=== PATIENT | female | born 1930 | race Caucasian/White ===

== ENCOUNTER 2017-05-21 18:31 | Emergency (ER) | payer MEDICARE ==
[2017-05-21 20:01] LABS: ABSOLUTE BASOPHILS # (AUTO) 0.1 10^3/uL (0.0-0.2); ABSOLUTE EOSINOPHILS # (AUTO) 0.1 10^3/uL (0.0-0.6); ABSOLUTE MONOCYTES (AUTO) 0.6 10^3/uL (0.1-1.4); ABSOLUTE NEUT (AUTO) 4.2 10^3/uL (1.7-8.2); BASOPHILS % (AUTO) 0.8 % (0-2); EOSINOPHILS % (AUTO) 1.5 % (0-6); HEMOGLOBIN 12.5 g/dL (12.0-15.5); LYMPHOCYTES % (AUTO) 28.1 % (13-45); MEAN CORPUSCULAR HEMOGLOBIN 29.2 pg (27.0-33.4); MEAN CORPUSCULAR HGB CONC 33.8 g/dL (32.0-36.0); MEAN CORPUSCULAR VOLUME 87 fl (80-97); MONOCYTES % (AUTO) 8.3 % (3-13); PLATELET COUNT 289 10^3/uL (150-450); RED BLOOD COUNT 4.27 10^6/uL (3.72-5.28); RED CELL DISTRIBUTION WIDTH 12.9 % (11.5-14.0); SEGMENTED NEUTROPHILS % (AUTO) 61.3 % (42-78); TOTAL CELLS COUNTED % (AUTO) 100 %; WHITE BLOOD COUNT 6.9 10^3/uL (4.0-10.5)
[2017-05-21 20:05] LABS: APPEARANCE,URINE CLEAR; BILIRUBIN,URINE NEGATIVE (NEGATIVE); COLOR,URINE COLORLESS; GLUCOSE, URINE NEGATIVE (NEGATIVE); KETONES,URINE NEGATIVE (NEGATIVE); LEUKOCYTE ESTERASE,URINE SMALL (NEGATIVE); NITRITE,URINE NEGATIVE (NEGATIVE); PROTEIN,URINE NEGATIVE (NEGATIVE); URINE SPECIFIC GRAVITY 1.003; UROBILINOGEN,URINE NEGATIVE mg/dL (<2.0)
--- NOTE | 2017-05-21 20:09 | ER Document Report ---
ED General - General Chief Complaint: High Blood Pressure Stated Complaint: FEVER Time Seen by Provider: 05/21/17 19:26 Cannot obtain history due to: Other - Poor historian Notes: Patient is an 86-year-old female with a past medical history of hypothyroidism and hypertension who presents with severe hypertension and a feeling of lightheadedness. Patient is a very difficult historian and does struggle to provide some details of her history. Her daughter at the bedside reports that the patient has noted her blood pressure has been markedly elevated throughout the day today and she has also been complaining of lightheadedness and "just not feeling right". Patient denies any chest pain, shortness of breath, nausea , vomiting, weakness, numbness, confusion, neck pain or fever. No head trauma. She has a history of similar symptoms in the past and her blood pressure has gotten very high. She has not seen her primary doctor regarding today's concerns. She has not noted that he seemed to improve or worsen her symptoms. At time of my assessment her only complaint is that she "just does not feel right". TRAVEL OUTSIDE OF THE [place] IN LAST 30 DAYS: No - Related Data Allergies/Adverse Reactions: influenza virus vaccine tri-split 2 [From Fluarix 2801-4066 (PF)] Allergy ( Verified 08/28/13 15:42) iodine [Iodine] Allergy (Verified 08/28/13 15:42) pneumococcal vaccine [Pneumococcal Vaccine] Allergy (Verified 08/28/13 15:42) Past Medical History - General Information source: Patient - Social History Smoking Status: Never Smoker Chew tobacco use (# tins/day): No Frequency of alcohol use: None Drug Abuse: None Lives with: Family Family History: Reviewed & Not Pertinent Patient has suicidal ideation: No Patient has homicidal ideation: No - Past Medical History Cardiac Medical History: Reports: Hx Hypercholesterolemia, Hx Hypertension Endocrine Medical History: Reports: Hx Hypothyroidism Renal/ Medical History: Denies: Hx Peritoneal Dialysis Musculoskeltal Medical History: Reports Hx Arthritis Past Surgical History: Reports: Hx Tonsillectomy. Denies: Hx Pacemaker - Immunizations Hx Diphtheria, Pertussis, Tetanus Vaccination: Yes Review of Systems - Review of Systems Notes: Constitutional: Negative for fever. HENT: Negative for sore throat. Eyes: Negative for visual changes. Cardiovascular: Negative for chest pain. Respiratory: Negative for shortness of breath. Gastrointestinal: Negative for abdominal pain, vomiting or diarrhea. Genitourinary: Negative for dysuria. Musculoskeletal: Negative for back pain. Skin: Negative for rash. Neurological: Negative for headaches, weakness or numbness. 10 point ROS negative except as marked above and in HPI. Physical Exam - Vital signs Vitals: Temp Pulse Resp BP Pulse Ox 98.5 F 83 16 221/86 H 97 05/21/17 18:56 05/21/17 18:56 05/21/17 18:56 05/21/17 18:56 05/21/17 18:56 Interpretation: Hypertensive - Blood pressures are equal and symmetric in the bilateral upper extremities taken at the bedside by me Notes: PHYSICAL EXAMINATION: GENERAL: Well-appearing, well-nourished and in no acute distress. HEAD: Atraumatic, normocephalic. EYES: Pupils equal round and reactive to light, extraocular movements intact, sclera anicteric, conjunctiva are normal. ENT: nares patent, oropharynx clear without exudates. Moist mucous membranes. NECK: Normal range of motion, supple without lymphadenopathy LUNGS: Breath sounds clear to auscultation bilaterally and equal. No wheezes rales or rhonchi. HEART: Regular rate and rhythm without murmurs ABDOMEN: Soft, nontender, normoactive bowel sounds. No guarding, no rebound. No masses appreciated. EXTREMITIES: Normal range of motion, no pitting or edema. No cyanosis. NEUROLOGICAL: Face symmetric. Tongue protrudes midline. Extraocular motions intact. Pupils are 2 mm and equally reactive. Normal speech, normal gait. 5 out of 5 strength in both the distal and proximal upper and lower extremities bilaterally. Sensation is grossly intact throughout. Finger to nose testing normal. Pronator drift normal. PSYCH: Normal mood, normal affect. SKIN: Warm, Dry, normal turgor, no rashes or lesions noted. Course - Re-evaluation Re-evalutation: 05/21/17 20:09 Patient complaints of hypertension with associated light headedness. Although patient reports that she had a "fever" today she states she felt hot but did not record temperature and felt that her forehead felt warm when she touched it. At time of my assessment other than feeling somewhat lightheaded, she denies any additional complaints. EKG unremarkable. Her blood pressures are equal and symmetric in the bilateral upper extremities at 199 systolic over 92 diastolic. Clinical history is not consistent with an acute aortic dissection, vertebral or cervical artery dissection, acute stroke, or acute ID. Acute PE also seems highly unlikely. It seems that the patient is having an episode where her blood pressure has become acutely elevated for unclear etiology and is likely resulting her symptoms of lightheadedness. Will symptomatically treat her blood pressure here with hydrochlorothiazide 50 mg p.o., obtain basic laboratories and reassess the patient. 05/21/17 22:05 Patient's labs are unremarkable with the exception of the urinalysis was to suggest a urinary tract infection. Blood pressure does remain elevated. Will continue to monitor the patient 05/21/17 22:40 Patient's blood pressures improved after receiving hydralazine yet she continues to complain of an unusual sensation at this time on her left side of her head and neck. I was hopeful that when her blood pressure normalized she would become asymptomatic. At this point although I think it is unlikely, I will obtain a CT of the head to evaluate for any kind of intracranial bleed or mass. If these are unremarkable I will feel comfortable with discharge at that point. 05/21/17 23:44 CT head is clear. Patient remains without any focal neurologic deficits. Overall symptomatically improved. Blood pressure has normalized. Her vitals otherwise within normal limits. At this time will discharge with return precautions and follow-up recommendations. Verbal discharge instructions given a the bedside and opportunity for questions given. Medication warnings reviewed. Patient is in agreement with this plan and has verbalized understanding of return precautions and the need for primary care follow-up in the next 24-72 hours. - Vital Signs Vital signs: Temp Pulse Resp BP Pulse Ox 98.0 F 84 17 138/87 H 98 05/22/17 00:18 05/22/17 00:18 05/22/17 00:18 05/22/17 00:18 05/22/17 00:18 - Laboratory Result Diagrams: 05/21/17 19:49 05/21/17 21:10 Laboratory results interpreted by me: 05/21/17 05/21/17 19:00 21:10 Potassium 3.5 L BUN 22 H Urine Blood MODERATE H Ur Leukocyte Esterase SMALL H - Diagnostic Test Radiology reviewed: Image reviewed, Reports reviewed Radiology results interpreted by me: 05/21/17 22:17 Chest x-ray: No acute infiltrate or pneumothorax - EKG Interpretation by Me Additional EKG results interpreted by me: 05/21/17 22:18 Sinus rhythm. Rate 67. No ST elevations or depressions. QTC is 461. Discharge - Discharge Clinical Impression: Lightheadedness, Essential hypertension Condition: Good Disposition: HOME, SELF-CARE Additional Instructions: You were seen today for blood pressure that was high. This is a long-term risk factor for multiple medical problems including heart attack and stroke. However, the blood pressure in of itself will not cause you to have an acute stroke or heart attack over the course of just several days or weeks. You need to have a gradual reduction of your blood pressure back to normal levels over the next several months in conjunction with your primary care physician. Return if you develop headache, weakness, numbness, chest pain, pass out, or have any other symptoms that are concerning to you. Prescriptions: Amlodipine Besylate 10 mg PO DAILY #30 tab Cephalexin Monohydrate [Keflex 500 mg Capsule] 500 mg PO Q6H 5 Days capsule Referrals: KAVITA HADDAD MD [Primary Care Provider] - Follow up as needed
--- NOTE | 2017-05-21 20:29 | RADIOLOGY REPORT (SQ) ---
EXAM DESCRIPTION: CHEST SINGLE VIEW COMPLETED DATE/TIME: 05/21/2017 7:37 pm REASON FOR STUDY: fever, cough COMPARISON: 08/28/2013. NUMBER OF VIEWS: One view. TECHNIQUE: Single frontal radiographic view of the chest acquired. LIMITATIONS: None. FINDINGS: LUNGS AND PLEURA: No opacities, masses or pneumothorax. No pleural effusion. Attenuated bl ood vessels and flattened paul-diaphragms. MEDIASTINUM AND HILAR STRUCTURES: No masses. Contour normal. HEART AND VASCULAR STRUCTURES: Heart normal in size. Normal vasculature. BONES: No acute findings. HARDWARE: None in the chest. OTHER: No other significant finding. IMPRESSION: COPD. NO ACUTE RADIOGRAPHIC FINDING IN THE CHEST. TECHNICAL DOCUMENTATION: JOB ID: [id number] [facility]- All Rights Reserved Reading location - IP/workstation name: [email or web address]
[2017-05-21] MEDS ORDERED: HYDROCHLOROTHIAZIDE 50 MG TABLET PO ONE (20:56)
[2017-05-21] MEDS ORDERED: CEPHALEXIN 500 MG CAPSULE PO ONE (20:57)
[2017-05-21 21:49] LABS: ALANINE AMINOTRANSFERASE 24 U/L (9-52); ALBUMIN 4.3 g/dL (3.5-5.0); ALKALINE PHOSPHATASE 72 U/L (38-126); ANION GAP 10 (5-19); ASPARTATE AMINO TRANSFERASE 22 U/L (14-36); BILIRUBIN,DIRECT 0.3 mg/dL (0.0-0.4); BILIRUBIN,TOTAL 0.4 mg/dL (0.2-1.3); BLOOD UREA NITROGEN 22 mg/dL (7-20); CALCIUM 9.9 mg/dL (8.4-10.2); CARBON DIOXIDE 24 mmol/L (22-30); CHLORIDE 104 mmol/L (98-107); GLUCOSE 102 mg/dL (75-110); POTASSIUM 3.5 mmol/L (3.6-5.0); SODIUM 137.8 mmol/L (137-145); TOTAL PROTEIN 7.1 g/dL (6.3-8.2)
[2017-05-21] MEDS ORDERED: HYDRALAZINE HCL INJ/PF 20 MG/1 ML SDV IV ONE (22:04)
--- NOTE | 2017-05-21 23:24 | RADIOLOGY REPORT (SQ) ---
EXAM DESCRIPTION: CT HEAD WITHOUT COMPLETED DATE/TIME: 05/21/2017 11:14 pm REASON FOR STUDY: persistent headache, neck pain COMPARISON: 08/28/2013 TECHNIQUE: Axial images acquired through the brain without intravenous contrast. Images reviewed wi th bone, brain and subdural windows. Images stored on PACS. All CT scanners at this facility use dose modulation, iterative reconstruction, and/or weight based d osing when appropriate to reduce radiation dose to as low as reasonably achievable (ALARA). [facility]: Dose Right [facility]: CareDose [facility]: Dose Right [facility]: Teradose 4D [facility]: Smart Access Mobile RADIATION DOSE: CT Rad equipment meets quality standard of care and radiation dose reduction techniq ues were employed. CTDIvol: 64.6 mGy. DLP: 1163 mGy-cm. mGy. LIMITATIONS: None. FINDINGS: VENTRICLES: Prominent. CEREBRUM: No masses. No hemorrhage. No midline shift. Areas of low density in the white matter mos t likely due to chronic micro-vascular ischemic change. No evidence for acute infarction. CEREBELLUM: No masses. No hemorrhage. No alteration of density. No evidence for acute infarction. EXTRAAXIAL SPACES: Mild age-related involutional change. No fluid collections. No masses. ORBITS AND GLOBE: No intra- or extraconal masses. Normal contour of globe without masses. CALVARIUM: No fracture. PARANASAL SINUSES: No fluid or mucosal thickening. SOFT TISSUES: No mass or hematoma. OTHER: No other significant finding. IMPRESSION: No acute intracranial findings. EVIDENCE OF ACUTE STROKE: NO. TECHNICAL DOCUMENTATION: JOB ID: [id number] [id number] Quality ID # [id number]: Final reports with documentation of one or more dose reduction techniques (e.g., Au tomated exposure control, adjustment of the mA and/or kV according to patient size, use of iterative reconstruction technique) 2010 [employer]- All Rights Reserved Reading location - IP/workstation name: [email or web address]
[2017-05-22 00:20] VITALS: BP 138/87
--- NOTE | 2017-05-22 09:03 | EKG REPORT ---
SEVERITY:- ABNORMAL ECG - SINUS RHYTHM PROBABLE LEFT ATRIAL ABNORMALITY PROBABLE LEFT VENTRICULAR HYPERTROPHY : Confirmed by: Chino Ang 22-May-2017 09:02:23
== END 2017-05-22 00:45 | disposition home or self-care (01) ==
LOC: ER 18:31
DX: R42 Dizziness and giddiness (principal); I10 Essential (primary) hypertension; R50.9 Fever, unspecified; E03.9 Hypothyroidism, unspecified
CPT/HCPCS: 93005; 99284; 96374; 36415; 87086; 85025; 80053; 81001; 84484; 71045; 70450; 93010; A9270; J0360; J3490

== ENCOUNTER 2017-08-28 12:35 | Emergency (ER) | payer MEDICARE ==
[2017-08-28 12:50] VITALS: BP 130/57
[2017-08-28] MEDS ORDERED: CEPHALEXIN 500 MG CAPSULE PO ONE (13:52)
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
== END 2017-08-28 14:12 | disposition home or self-care (01) ==
LOC: ER 12:35
DX: S51.812A Laceration without foreign body of left forearm, initial encounter (principal); S41.112A Laceration without foreign body of left upper arm, initial encounter; S50.02XA Contusion of left elbow, initial encounter; L03.114 Cellulitis of left upper limb; W19.XXXA Unspecified fall, initial encounter; Z88.7 Allergy status to serum and vaccine; I10 Essential (primary) hypertension
CPT/HCPCS: 99283; A9270